=== PATIENT | female | born 1990 | race Caucasian/White ===

== ENCOUNTER → 2024-11-12 | Day surgery (SDC) | payer OTHER ==
[2024-11-12] MEDS: IV FLUID CONTINUATION 1,000 ML IV ONE (06:50)
[2024-11-12] MEDS: SODIUM CHLORIDE 0.9% 1,000 ML IV SCH (06:50)
[2024-11-12 07:29] VITALS: BP 115/79; PULSE 79; RESP 14; TEMP 976
--- NOTE | 2024-11-12 18:22 | P.EPPROC ---
- EP Procedure Note Electrophysiology Procedure Note: Diagnosis Recurrent syncope Twelve-lead EKG shows sinus rhythm normal [place] narrow QRS normal ST segments normal QT interval Tilt table test per protocol Baseline heart rate 66 beats a minute, baseline blood pressure 136/65 mmHg Patient was tilted upright from angle of 70 degrees per protocol minimal increase in heart rate by 15-20 points in the first 10 minutes No change in blood pressure Patient had a variety of symptoms such as she was about to pass out. At that time her blood pressure was 134/89 mmHg and her heart rate was 80 beats a minute. Later she complained of being sweaty and cold, sometime later she was not feeling good, feeling flushed and lightheaded Later once again she thought she was about to pass out but her heart rate was 89 beats a minute and her blood pressure was 126/87 mmHg Impression Normal twelve-lead EKG No significant change in heart rate or blood pressure during tilt table testing When the patient felt presyncopal her heart rate and blood pressure was stable and unchanged
--- NOTE | 2024-11-12 18:29 | P.EPPROC ---
- EP Procedure Note Electrophysiology Procedure Note: Diagnosis: Recurrent presyncope Twelve-lead EKG shows sinus rhythm normal [place] normal QRS normal ST segments normal QT interval Tilt table test per protocol Baseline blood pressure 121/76 mmHg baseline heart rate 68 beats a minute Patient was tilted upright in 9 over 70 degrees per protocol No significant change in heart rate or blood pressure She reported a variety of symptoms such as being lightheaded nauseous numbness in both hands and feet. His symptoms continued throughout the tilt table test while her blood pressure and heart rate remained fairly unchanged Impression Normal heart rate and blood pressure response to upright tilting Normal twelve-lead EKG Symptoms did not correlate with any significant change in blood pressure or heart rate
== END ==
LOC: CATHEP 06:32
PROVIDERS: ATTEND Internal Medicine Clinical Cardiac Electrophysiology
DX: R55 Syncope and collapse (principal); R42 Dizziness and giddiness
CPT/HCPCS: 84703; 93660